=== PATIENT | female | born 1970 | race Caucasian/White ===

== ENCOUNTER 2017-01-23 21:51 | Emergency (ER) | payer MEDICARE ==
[~2017-01-23] VITALS: Ht 167.6 cm; Wt 170.1 kg
[2017-01-23 21:55] VITALS: BP_SYST 126
== END 2017-01-23 22:50 | disposition left against medical advice (07) ==
LOC: SED 21:51
DX: R07.89 Other chest pain (principal); R06.02 Shortness of breath; Z53.21 Procedure and treatment not carried out due to patient leaving prior to being seen by health care provider
CPT/HCPCS: 93005; 99281

== ENCOUNTER 2022-07-31 16:31 | Emergency (ER) | payer MEDICARE, OTHER ==
[~2022-07-31] VITALS: Ht 167.6 cm; Wt 113.4 kg
[2022-07-31 16:47] VITALS: BP_SYST 119
--- NOTE | 2022-07-31 16:54 | NUR ---
Patient triaged and placed in waiting room. VSS and patient appears in no acute distress at this time. Accompanied by spouse, awaiting available bed, and MD notified of need for MSE.
[2022-07-31 23:40] VITALS: BP_SYST 141
--- NOTE | 2022-07-31 23:43 | NUR ---
Patient given written and verbal discharge instructions and verbalizes understanding. ER MD discussed with patient the results and treatment provided. Patient in stable condition. ID arm band removed. Patient educated on pain management and to follow up with PMD. Pain Scale [0]. Opportunity for questions provided and answered. Medication side effect fact sheet provided.
== END 2022-07-31 23:40 | disposition home or self-care (01) ==
LOC: SED 16:31
DX: S16.1XXA Strain of muscle, fascia and tendon at neck level, initial encounter (principal); M79.622 Pain in left upper arm; Z88.0 Allergy status to penicillin; Z88.1 Allergy status to other antibiotic agents; Z91.040 Latex allergy status; Z79.899 Other long term (current) drug therapy; V89.2XXA Person injured in unspecified motor-vehicle accident, traffic, initial encounter; Y93.89 Activity, other specified; Y92.89 Other specified places as the place of occurrence of the external cause; Y99.8 Other external cause status
CPT/HCPCS: 72125-TC; 73030; 73060-TC; 76376; 99284

== ENCOUNTER 2023-02-02 15:09 | Emergency (ER) | payer OTHER, MEDICARE ==
[~2023-02-02] VITALS: Ht 167.6 cm; Wt 111.1 kg
[2023-02-02 15:47] VITALS: BP_SYST 101; PULSE 72; RESP 16; TEMP 97.5; O2SAT 94
[2023-02-02] MEDS ORDERED: ZAN4 PO (17:06)
[2023-02-02] MEDS ORDERED: NABU-140 PO (17:06)
[2023-02-02 17:39] VITALS: BP_SYST 108; PULSE 90; RESP 18; TEMP 97.4; O2SAT 98
== END 2023-02-02 17:40 | disposition home or self-care (01) ==
LOC: SED 15:09
DX: S16.1XXA Strain of muscle, fascia and tendon at neck level, initial encounter (principal); Z88.0 Allergy status to penicillin; Z88.1 Allergy status to other antibiotic agents; Z91.040 Latex allergy status; Z79.899 Other long term (current) drug therapy; V89.2XXA Person injured in unspecified motor-vehicle accident, traffic, initial encounter; Y93.89 Activity, other specified; Y92.89 Other specified places as the place of occurrence of the external cause; Y99.8 Other external cause status
CPT/HCPCS: 72040-TC; 99283